=== PATIENT | male | born 1990 | race Caucasian/White ===

== ENCOUNTER 2019-05-05 16:09 | Emergency (ER) | payer OTHER ==
[~2019-05-05] VITALS: Ht 182.9 cm; Wt 86.2 kg
[2019-05-05] MEDS ORDERED: ADDERAL20 MG ORAL (16:28)
[2019-05-05 17:16] VITALS: BP 126/77
--- NOTE | 2019-05-05 17:19 | NUR ---
ED Nurse Note:no c/o chest pain at this time, EKG and CXR was done
--- NOTE | 2019-05-05 17:31 | Emergency Room Report ---
History of Present Illness General Chief Complaint: General Complaint Source: Patient Present Illness HPI 28 YO male presents to the ED for eval after experiencing left arm numbness and CP. Pt. denies pain right now 0/10.He describes one week ago having a transient episode of left arm paresthesia and pain in the chest. pt. reports taking shallow breaths. onset of symptoms when walking on a gravel hill at an elevation of 8k feet. pt. denies symptoms at this time. He states this week after initial onset of his symptoms he has had intermittent episodes of paresthesias in the bilateral hands which resolve on their own. He reports he felt his left arm "tense up" for several minutes. He reports pmhx of ADHD, Anxiety, and PTSD. pt. Denies drug use. He denies cardiac hx or recent travel. He denies smoking hx. He denies familial cardiac hx. Pt. Denies SOB. He denies hemoptysis. He denies trauma or fall. He denies recent strenuous activities or heavy lifting otherwise. Allergies: Coded Allergies: No Known Allergies (Unverified , 05/05/19) Patient History Past Medical History: see triage record, psych hx Past Surgical History: none Pertinent Family History: none Reviewed Nursing Documentation: PMH: Agreed; PSxH: Agreed Review of Systems All Other Systems: negative except mentioned in HPI Physical Exam Vital Signs Date Time Temp Pulse Resp B/P (MAP) Pulse Ox O2 Delivery O2 Flow Rate FiO2 05/05/19 16:25 97.5 69 19 126/77 (93) 98 Room Air Sp02 EP Interpretation: reviewed, normal General Appearance: no apparent distress, alert, GCS 15, non-toxic Head: normocephalic, atraumatic Eyes: bilateral eye normal inspection, bilateral eye PERRL ENT: hearing grossly normal, normal voice Neck: full range of motion Respiratory: chest non-tender, lungs clear, normal breath sounds, no respiratory distress, no accessory muscle use, no wheezing, speaking full sentences Cardiovascular #1: regular rate, rhythm, no edema, normal capillary refill Musculoskeletal: back normal, normal range of motion, gait/station normal, non- tender Neurologic: alert, motor strength/tone normal, oriented x3, sensory intact, responsive, speech normal, normal gait, grossly normal, no focal defects Psychiatric: judgement/insight normal Skin: normal color Medical Decision Making PA Attestation Dr. Malagon is my supervising Physician whom patient management has been discussed with. Diagnostic Impression: Primary Impression: Paresthesia of arm ER Course 28 YO male presents to the ED for eval after experiencing left arm numbness and CP. Pt. denies pain right now 0/10.He describes one week ago having a transient episode of left arm paresthesia and pain in the chest. pt. reports taking shallow breaths. onset of symptoms when walking on a gravel hill at an elevation of 8k feet. pt. denies symptoms at this time. He states this week after initial onset of his symptoms he has had intermittent episodes of paresthesias in the bilateral hands which resolve on their own. He reports he felt his left arm "tense up" for several minutes. He reports pmhx of ADHD, Anxiety, and PTSD. pt. Denies drug use. He denies cardiac hx or recent travel. He denies smoking hx. He denies familial cardiac hx. Pt. Denies SOB. He denies hemoptysis. He denies trauma or fall. He denies recent strenuous activities or heavy lifting otherwise. Ddx considered but are not limited to uropathy, paresthesia, electrolyte imbalance, cardiac dysrhythmia, stroke, DVT, PE, cyanocobalamin deficiency. nerve palsy, neuritis Vital signs: are WNL, pt. is afebrile H&PE are most consistent with transient paresthesia and chest pain in a person with no cardiac RF's. PT. asymptomatic at this time. NAD and non-toxic in appearance. ORDERS: -CXR; WNL -EK sinus ang ED INTERVENTIONS: None required at this time. - D/w pt. to follow up with [facility] and Neurologist if conservative treatment does not relieve symptoms or for further evaluation. DISCHARGE: At this time pt. is stable for d/c to home. Will provide printed patient care instructions, and any necessary prescriptions. Care plan and follow up instructions have been discussed with the patient prior to discharge. EKG Diagnostic Results Rate: bradycardiac - 58 Rhythm: NSR ST Segments: no acute changes ASA given to the pt in ED: No PA Scribe Text This Interpretation was scribed by CELSO Moeller. Chest X-Ray Diagnostic Results Chest X-Ray Diagnostic Results : Chest X-Ray Ordered: Yes # of Views/Limited/Complete: 1 View Indication: Shortness of Breath EP Interpretation: Yes CELSO Xray: Interpretation reviewed, by supervising MD, and agrees with findings. Interpretation: no consolidation, no effusion, no pneumothorax, no acute cardiopulmonary disease Impression: No acute disease Electronically Signed by: Carleen Moeller PA-C Last Vital Signs Date Time Temp Pulse Resp B/P (MAP) Pulse Ox O2 Delivery O2 Flow Rate FiO2 05/05/19 17:16 69 19 Room Air 05/05/19 17:16 97.5 126/77 98 Disposition: HOME, SELF-CARE Condition: Stable Patient Instructions: Nonspecific Chest Pain, [id number], Paresthesia, Easy- to-Read Additional Instructions: Take any previously prescribed medications as directed. Follow up with a Primary Care Provider in 3-5 days, even if your symptoms have resolved. Return sooner to ED if new symptoms occur, or current symptoms become worse. - Please note that this Emergency Department Report was dictated using [employer] ii inspector technology software, occasionally this can lead to erroneous entry secondary to interpretation by the dictation equipment. Carleen Moeller May 05, 2019 17:31
[2019-05-05 17:41] VITALS: BP 126/77
--- NOTE | 2019-05-05 17:42 | NUR ---
ER DISCHARGE NOTE: Patient is cleared to be discharged per ERMD, pt is aox4, on room air, with stable vital signs. pt was given dc instructions, pt was able to verbalize understanding, pt is able to ambulate with steady gait. pt took all belongings.
--- NOTE | 2019-05-06 08:50 | Diagnostic Imaging Report ---
Indication: Chest pain Technique: One view of the chest Comparison: none Findings: Lungs and pleural spaces are clear. Heart size is normal. Impression: No acute process
== END 2019-05-05 17:41 | disposition home or self-care (01) ==
LOC: EMR 16:50
DX: R20.2 Paresthesia of skin (principal); F90.9 Attention-deficit hyperactivity disorder, unspecified type; F41.9 Anxiety disorder, unspecified
CPT/HCPCS: 71045; 93005; 99283